=== PATIENT | female | born 1950 | race Caucasian/White ===

== ENCOUNTER 2022-01-13 05:45 | Day surgery (SDC) | payer OTHER ==
[~2022-01-13 05:45] MED LIST: LIPIT PO; METFORMIN HCL500 MG; VITAMIN D10000 UNIT; VITAMIN D310 MCG/1 M PO; VITAMIN E PO; ZESTRIL5 MG PO
[2022-01-13] MEDS ORDERED: NEURONTIN300 MG PO (08:33)
[2022-01-13] MEDS ORDERED: KETO10TA2 PO (08:33)
[2022-01-13] MEDS ORDERED: ULTRAM50 MG PO (08:33)
[2022-01-13] MEDS ORDERED: DERMOPLAST PAIN78 GM TOP (08:34)
== END 2022-01-13 12:44 | disposition home or self-care (01) ==
LOC: CIR.AMB 05:45
PROVIDERS: ATTEND Surgery
DX: K64.4 Residual hemorrhoidal skin tags (principal); K57.30 Diverticulosis of large intestine without perforation or abscess without bleeding; K64.2 Third degree hemorrhoids; Z91.013 Allergy to seafood; Z20.822 Contact with and (suspected) exposure to COVID-19